=== PATIENT | female | born 2000 | race Caucasian/White ===

== ENCOUNTER 2024-04-02 15:49 | Emergency (ER) | payer OTHER, SELFPAY ==
[2024-04-02 15:55] VITALS: BP 112/71; PULSE 94; RESP 16; TEMP 36.6; O2SAT 97
--- NOTE | 2024-04-02 16:11 | ED.GENADULT ---
HPI - General Adult General Chief complaint: Urogenital-Female Stated complaint: Uti Symptoms Time Seen by Provider: 04/02/24 16:11 Source: patient, RN notes reviewed and old records reviewed Mode of arrival: ambulatory Limitations: no limitations History of Present Illness HPI narrative: 24-year-old female to Express Care for complaint of vaginal irritation itching discharge for 3 days. Patient describes discharge as white and creamy to chunky consistency. Patient endorses sexual intercourse with new partner 3 days ago. Patient states that she used protection. Patient denies abdominal pain, back pain, urinary frequency, urinary urgency, dysuria, hematuria, nausea, vomiting, fever. Patient endorses history of BV. Patient in no acute distress. Related Data Allergies Allergy/AdvReac Type Severity Reaction Status Date / Time No Known Allergies Allergy Unknown Unverified 03/13/24 10:12 Review of Systems Review of Systems: All systems reviewed & are unremarkable except as noted in HPI and below Constitutional: Constitutional: Reports no additional constitutional complaints Eyes: Eyes: Reports no additional eye complaints ENT: Reports system reviewed and no additional complaints, except as documented Cardiovascular: Cardiovascular: Reports no additional cardiovascular complaints, Denies chest pain and Denies dyspnea Respiratory: Respiratory: Reports no additional respiratory complaints, Denies cough and Denies dyspnea Musculoskeletal: Musculoskeletal: Reports no additional musculoskeletal complaints Neurologic: Reports system reviewed and no additional complaints, except as documented Psychiatric: Psychiatric: Reports no additional psychiatric complaints PMFSH Past Medical History Medical History Depression Lower extremity surgery planned Surveillance for Depo-Provera contraception Family History Family History Other Breast cancer Depression Diabetes mellitus Social History Social History (Updated 03/13/24 @ 10:16 by Reena Cantu MA) Smoking status: Never smoker Alcohol intake: never Substance use: never Substance use type: does not use Do You Feel Safe in your Home?: Yes Lack of Transportation: No Current Housing: I Do Not Have Housing Concerned About Future Housing: No Difficulty Paying Gas/Electric Bills: No Difficulty Paying for Meds: No Currently Unemployed: No Education: Bachelor's Degree Difficulty w/ Childcare or Family Care: No Living arrangements: with family Occupation/Education: occupation 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 There is no relevant family history pertinent to the patient complaint. Exam Const: General: cooperative, healthy appearing, comfortable, no acute distress, alert and well nourished Nutritional Appearance: well nourished Orientation/consciousness: patient oriented x3 Limitations: no limitations HENMT: Head: normal to inspection Ears: external ears normal Face/Nose/Sinus: Normal external nose present, Normal nares present, normal facial exam, No erythema and No edema Face and sinus: normal facial exam, no erythema and no edema Mouth: Yes Normal oral and palatal mucosa present Eyes: General: appearance normal, both eyes and all related structures Neck: Neck: normal visual inspection, full ROM and no meningeal signs Lymphatic: no lymphadenopathy noted and no lymphedema noted Chest: Chest palpation & inspection: normal inspection of the chest Resp: Effort & Inspection: normal respiratory effort and able to speak in complete sentences Cardio: Jugular tri
[2024-04-02 22:25] LABS: Trichomonas Vag PCR NOT DETECTED (NOT DETECTE)
[2024-04-02 22:47] LABS: Chlamydia trachomatis NOT DETECTED (NOT DETECTE); Neisseria gonorrhoeae PCR NOT DETECTED (NOT DETECTE)
[2024-04-03 17:23] LABS: Bacterial Vaginosis POSITIVE (NEGATIVE)
== END 2024-04-02 16:46 | disposition home or self-care (01) ==
PROVIDERS: Emergency Provider Nurse Practitioner Family; PCP Nurse Practitioner Family
DX: N76.0 Acute vaginitis (principal)
CPT/HCPCS: 81513; 87491; 87591; 87661; 99214; G0463

== ENCOUNTER 2024-08-12 10:24 | Emergency (ER) | payer OTHER, SELFPAY ==
--- NOTE | ~2024-08-12 | XR_ITS ---
XR chest 2V Ordering provider: Brigette Ashton APRN History: 24 years Female with . short of breath. Pain across chest since Bhanu . Comparison: None. FINDINGS: MEDIASTINUM: The cardiac silhouette is not enlarged. LUNGS: No infiltrates, effusions or pneumothorax. OTHER: No free air under the diaphragm. Mild levoscoliosis. IMPRESSION: No acute cardiopulmonary pathology. Reviewed, dictated and finalized at location [facility]. [facility]
[2024-08-12 10:38] VITALS: BP 125/72; PULSE 78; RESP 18; TEMP 36.4; O2SAT 100
--- NOTE | 2024-08-12 10:38 | ED_ITS ---
HPI - Chest Pain General Chief Complaint: Chest Pain Stated Complaint: tightness in chest / diarrhea Time Seen by Provider: 08/12/24 10:39 Source: patient, RN notes reviewed and old records reviewed Mode of arrival: ambulatory Limitations: no limitations History of Present Illness HPI narrative: Patient with history of IBS presents with complaints diarrhea which is at baseline, nausea which is unusual for her, no vomiting. She is also complaining of epigastric pain and difficulty taking a deep breath. She denies any fever, chills, sweats. She denies any cough. Discomfort is reproducible on palpation, is not reproducible with deep breath or movement. She has not been taking anything for her symptoms. She is in no distress, including respiratory distress right now Related Data Allergies Allergy/AdvReac Type Severity Reaction Status Date / Time No Known Allergies Allergy Unknown Verified 08/12/24 10:27 Review of Systems Review of Systems: All systems reviewed & are unremarkable except as noted in HPI and below Constitutional: Constitutional: Reports as per HPI and Reports no additional constitutional complaints ENT: Reports system reviewed and no additional complaints, except as documented and Reports as per HPI Cardiovascular: Cardiovascular: Reports as per HPI and Reports no additional cardiovascular complaints Respiratory: Respiratory: Reports as per HPI, Reports no additional respiratory complaints and Reports dyspnea Gastrointestinal: Gastrointestinal: Reports as per HPI, Reports no additional gastrointestinal complaints, Reports dyspepsia, Reports diarrhea, Reports loose stools, Reports nausea and Denies vomiting PMFSH Past Medical History Medical History Depression Lower extremity surgery planned Surveillance for Depo-Provera contraception Family History Family History Other Breast cancer Depression Diabetes mellitus Social History Social History Smoking status: Never smoker Alcohol intake: never Substance use: never Substance use type: does not use Do You Feel Safe in your Home?: Yes Lack of Transportation: No Current Housing: I Do Not Have Housing Concerned About Future Housing: No Difficulty Paying Gas/Electric Bills: No Difficulty Paying for Meds: No Currently Unemployed: No Education: Bachelor's Degree Difficulty w/ Childcare or Family Care: No Living arrangements: with family Occupation/Education: occupation 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 There is no relevant family history pertinent to the patient complaint. Exam Const: General: cooperative, no acute distress, alert and awake Orientation/consciousness: oriented to person, oriented to place and oriented to time HENMT: Head: normal to inspection Mouth: Yes moist mucous membranes Chest: Chest palpation & inspection: normal inspection of the chest Resp: Effort & Inspection: normal respiratory effort and able to speak in complete sentences Auscultation: clear to auscultation bilaterally, no crack les, no rales, no rhonchi and no wheezes Cardio: Palpation: normal PMI Rate: regular rate Rhythm: regular rhythm Heart sounds: S1 normal heart sound present and S2 normal heart sound present GI: GI Palp: Yes abdominal tenderness (epigastric) Auscultation: normal bowel sounds Neuro: General: oriented to person, oriented to place and oriented to time Cranial nerves: Yes CN's II-XII intact bilaterally Psych: Appearance: grossly normal Thought process: Normal thought process present Insight: Good insight present (Psych) Judgement: Good judgement present (Psych) Course Course Level of Care: Express Care Visit Vital Signs Vital signs: Reviewed MDM - Chest Pain MDM Narrative Medical decision making narrative: 24-year-old in no distress, longstanding history of IBS. Having some GI symptoms including tenderness on palpation of epigastric area. She reports that this is making it feel as though she is having difficulty taking a deep breath. EKG shows normal sinus rhythm with incomplete right bundle-branch block. Normal chest x-ray. Symptoms could well be due to GI. 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 Emergency department for new or worse symptoms. Discharge instructions reviewed with patient, as well as provided in writing per nursing staff. The instructions also include specific and strict return/GO TO THE ER as well as f/u information. All questions have been answered, and the patient deny any further questions with discharge and discharge plan. Some parts of this dictation were generated by voice recognition software and may contain typographical and/or grammatical inaccuracies. Differential Diagnosis Differential diagnosis: Likely other (Bundle-branch block, dyspepsia, nausea) Medical Records Data Attestation: I reviewed the patient's medical records. Imaging Data My impression: no acute process noted Radiologist's impression: Ordering Physician: Brigette Ashton FNP Date of Service: 08/12/24 Procedure(s): CA 12 lead EKG Accession Number(s): [id number] cc: ~ Test Date: 2024-08-12 10:46:54 Measurements Intervals [place] Rate: 71 P: 44 TX: 120 QRS: 62 QRSD: 101 T: 38 QT: 388 QTc: 422 Interpretive Statements SINUS RHYTHM INCOMPLETE RIGHT BUNDLE BRANCH BLOCK BORDERLINE ECG No previous ECG available for comparison Electronically Signed On 08-12-2024 10:59:01 CARDIOLOGY PHYSICIAN by Jamie Mendez D.O. Dictated By: Jamie Mendez DO 08/12/24 1046 Signed By: <Electronically signed by Jamie Mendez DO in OV> 08/12/24 1059 ECG Data EKG #1: ECG completion date: 08/12/24 ECG completion time: 10:46 Prior ECG tracings: not available for review Interpretation: sinus rhythm with a ventricular rate of [address] elevation, incomplete right bundle branch block. No prior EKG available for comparison Discharge Plan Discharge Clinical Impression: Atypical chest pain Patient Disposition: Home, Self-Care Condition: Stable Instructions: Epigastric Pain (ED) Additional Instructions: take medications as prescribed. Follow-up primary care provider. Emergency department for new or worse symptoms Patient Language: [place] Prescriptions: New omeprazole 40 mg capsule,delayed release(DR/EC) 40 mg PO DAILY Qty: 30 0RF ondansetron 4 mg tablet,disintegrating 4 mg PO Q8H PRN (Reason: nausea and vomiting) Qty: 10 0RF Follow-up/Referrals: Chad,Magalis Sky APRN [Primary Care Provider] - 3 Days Stand Alone Forms: Work/School Release IP Time of Disposition: 11:28
--- NOTE | 2024-08-12 10:40 | ECG_ITS ---
Test Date: 2024-08-12 10:46:54 Measurements Intervals [place] Rate: 71 P: 44 OR: 120 QRS: 62 QRSD: 101 T: 38 QT: 388 QTc: 422 Interpretive Statements SINUS RHYTHM INCOMPLETE RIGHT BUNDLE BRANCH BLOCK BORDERLINE ECG No previous ECG available for comparison Electronically Signed On 08-12-2024 10:59:01 CLINICAL REVIEWER by Jamie Mendez D.O.
== END 2024-08-12 11:29 | disposition home or self-care (01) ==
PROVIDERS: Emergency Provider Nurse Practitioner Family; PCP Nurse Practitioner Family
DX: R07.89 Other chest pain (principal)
CPT/HCPCS: 71046; 93005; 99213; G0463

== ENCOUNTER 2024-08-12 17:43 | Emergency (ER) | payer OTHER, SELFPAY ==
--- NOTE | ~2024-08-12 | XR_ITS ---
CHEST RADIOGRAPH, PA AND LATERAL CLINICAL HISTORY: epigastric/ inferior chest pain . COMPARISON: Examination is compared with the previous study performed on the same day at 11:00 AM. TECHNIQUE: PA and lateral views of the chest. FINDINGS The cardiomediastinal silhouette remains unremarkable. The lungs remain clear. Visualized osseous structures and soft tissues remain unremarkable. IMPRESSION: No focal infiltrate or effusion. Reviewed, dictated and finalized at location [facility]
[2024-08-12 17:47] VITALS: BP 124/72; PULSE 74; RESP 18; TEMP 36.6; O2SAT 100
[2024-08-12 17:51] VITALS: O2SAT 100
[2024-08-12 17:53] VITALS: PULSE 75
[2024-08-12 18:16] VITALS: BP 110/63; PULSE 65; RESP 16; O2SAT 100
[2024-08-12 19:01] LABS: BEDSIDEPREGUCG Negative (Negative)
[2024-08-12] MEDS: BELLADONNA ALK/PHENOB ELIX 10 ML, MAG HYDROX/ALUMINUM HYD/SIMETH 30 ML, LIDOCAINE HCL 2... PO (19:06)
[2024-08-12] MEDS: FAMOTIDINE 20 MG TABLET PO (19:09)
[2024-08-12 19:12] LABS: Add Urine Microscopic? YES; Appearance Urine Cloudy (Clear); Bacteria Urine None Seen /hpf; Bilirubin Urine Negative (Negative); Blood Urine 2+ (Negative); Color Urine Yellow (Yellow); Glucose Urine UA Negative (Negative); Ketones Urine Negative (Negative); Leukocyte Esterase Ur Negative LEU/UL (Negative); Nitrate Urine Negative (Negative); Non Pathogenic Casts 0-2; Protein Urine Trace mg/dL (Negative); Specific Grav Ur 1.023 (1.001-1.035); Squamous Epithelial Cell Urine Occasional /hpf (Few); WBC Urine 0-5 /hpf (0-3); pH Urine 7.5 (5.0-9.0)
[2024-08-12 19:39] VITALS: BP 116/79; PULSE 70; RESP 19; O2SAT 100
[2024-08-12 19:45] LABS: Basophils Percent Auto 0.4 % (0.2-1.2); Eosinophils Absolute Auto 0.3 K/mm3 (0-0.3); Eosinophils Percent Auto 3.2 % (0-4.4); Hematocrit 38.3 % (37.0-47.0); Immature Granulocyte Absolute 0.02 K/mm3 (0.00-0.031); Immature Granulocyte Percent A 0.2 % (0-0.5); Lymphocytes Absolute Auto 3.07 K/mm3 (0.9-3.2); Lymphocytes Percent Auto 37.5 % (18.3-44.2); Mean Corpuscular HGB Conc 33.9 g/dl (32-36); Mean Corpuscular Hemoglobin 28.8 pg (26-34); Mean Corpuscular Volume 84.7 fl (80-100); Mean Platelet Volume 9.9 fl (7.4-10.4); Monocytes Absolute Auto 0.5 K/mm3 (0.1-0.6); Monocytes Percent Auto 5.7 % (2.6-8.5); Neutrophils Absolute Auto 4.3 K/mm3 (1.3-6.7); Platelet Count Result 247 k/mm3 (150-375); Red Blood Count 4.52 M/mm3 (4.2-5.4); Red Cell Distribution Width 12.1 % (11.5-14.5); White Blood Count 8.2 K/mm3 (4.5-10.0)
[2024-08-12 19:55] LABS: Alanine Aminotransferase 11 U/L (6-35); Albumin Level 4.1 g/dL (3.5-5.1); Alkaline Phosphatase 77 U/L (38-126); Anion Gap 5 mmol/L (4-12); Aspartate Amino Transferase 22 U/L (14-36); Bilirubin,Total 0.6 mg/dL (0.2-1.3); Blood Urea Nitrogen 12 mg/dL (7-17); Carbon Dioxide 28 mmol/L (22-30); Chloride 106 mmol/L (98-107); Estimated CRCL calculation 77 ml/min; Estimated Glomerular Filt Rate > 60; Glucose 98 mg/dL (65-110); Lipase 75 U/L (23-300); Potassium 3.6 mmol/L (3.4-5.0); Sodium 139 mmol/L (137-145)
[2024-08-12 20:05] LABS: Troponin I < 0.012 ng/mL (0.000-0.034)
--- NOTE | 2024-08-12 20:13 | ED_ITS ---
HPI - Chest Pain General Chief Complaint: Chest Pain Stated Complaint: chest pains Time Seen by Provider: 08/12/24 18:12 History of Present Illness HPI narrative: 24-year-old female presents emergency department for chest pain. Patient states she has been having pain where her sternum and stomach meet. States there is a constant pressure about every 5-10 minute she has a sharp pinpoint pain in her epigastrium. She reports associated shortness of breath but cannot identify any aggravating or alleviating factors. She reports associated nausea but no vomiting. Denies cough, congestion, lower extremity edema, recent surgeries or hospitalizations, history of VTE, fever. Denies melena or hematochezia, hemoptysis. Related Data Allergies Allergy/AdvReac Type Severity Reaction Status Date / Time No Known Allergies Allergy Unknown Verified 08/12/24 10:27 Review of Systems Review of Systems: All systems reviewed & are unremarkable except as noted in HPI and below PMFSH Past Medical History Medical History Depression Lower extremity surgery planned Surveillance for Depo-Provera contraception Family History Family History Other Breast cancer Depression Diabetes mellitus Social History Social History Smoking status: Never smoker Alcohol intake: never Substance use: never Substance use type: does not use Do You Feel Safe in your Home?: Yes Lack of Transportation: No Current Housing: I Do Not Have Housing Concerned About Future Housing: No Difficulty Paying Gas/Electric Bills: No Difficulty Paying for Meds: No Currently Unemployed: No Education: Bachelor's Degree Difficulty w/ Childcare or Family Care: No Living arrangements: with family Occupation/Education: occupation 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 HEAD: Normocephalic, atraumatic. EYES: EOMI. ENT: Nares clear, no rhinorrhea or epistaxis. Mucous membranes moist. NECK: Supple. CHEST: Clear to auscultation. No respiratory distress. HEART: Regular rate and rhythm. No murmur heard. Normal peripheral pulses. ABDOMEN: Soft, nontender, nondistended, normal active bowel sounds. No rebound, guarding or rigidity. No CVA tenderness. EXTREMITIES: Normal range of motion. No edema. Negative Homans bilaterally SKIN: Warm, dry, no rash. NEURO: No focal deficits. Alert and oriented x3 Course Vital Signs Vital signs: Vital Signs Temperature 97.8 F 08/12/24 17:47 Pulse Rate 74 08/12/24 17:47 Respiratory Rate 18 08/12/24 17:47 Blood Pressure 124/72 08/12/24 17:47 Pulse Oximetry 100 08/12/24 17:47 Oxygen Delivery Room Air 08/12/24 17:47 Temperature 97.8 F 08/12/24 17:47 Pulse Rate 70 08/12/24 19:39 Respiratory Rate 19 08/12/24 19:39 Blood Pressure 116/79 08/12/24 19:39 Pulse Oximetry 100 08/12/24 19:39 Oxygen Delivery Room Air 08/12/24 17:51 MDM - Chest Pain MDM Narrative Medical decision making narrative: 24-year-old female presents emergency department for epigastric abdominal pain intermittently for the past 3 days. Triage vitals are stable. Patient is afebrile nontoxic appearing. Exam is significant for the above. CBC obtained which shows no leukocytosis or anemia, chemistries are unremarkable. LFTs are unremarkable. UA with 3-5 rbc's, no wbc's, no nitrites. is negative. Lipase is normal. His x-ray shows no acute findings. EKG shows sinus rhythm with sinus arrhythmia, normal WI interval, normal QRS duration, normal QTC, no ischemic changes. Troponin is undetectable. Perc is negative. Patient and mother at bedside are updated workup. She is given Pepcid and GI cocktail for suspected gastritis without significant improvement. I discussed diet changes and close follow-up with PCP. Pepcid sent to pharmacy. Strict ED return precautions discussed. She is agreeable to plan verbalized understanding. Discharged in stable condition. Lab Data 08/12/24 19:37 08/12/24 19:37 Labs: Lab Results 08/12/24 08/12/24 08/12/24 Range/Units 18:59 19:04 19:37 WBC 8.2 (4.5-10.0) K/mm3 RBC 4.52 (4.2-5.4) M/mm3 Hgb 13.0 (12.0-15.0) g/dL Hct 38.3 (37.0-47.0) % MCV 84.7 (80-100) fl MCH 28.8 (26-34) pg MCHC 33.9 (32-36) g/dl RDW 12.1 (11.5-14.5) % Plt Count 247 (150-375) k/mm3 MPV 9.9 (7.4-10.4) fl Immature Gran % (Auto) 0.2 (0-0.5) % Neut % (Auto) 53.0 (45.5-73.1) % Lymph % (Auto) 37.5 (18.3-44.2) % [place] % (Auto) 5.7 (2.6-8.5) % Eos % (Auto) 3.2 (0-4.4) % Baso % (Auto) 0.4 (0.2-1.2) % Lymph # (Auto) 3.07 (0.9-3.2) K/mm3 [place] # (Auto) 0.5 (0.1-0.6) K/mm3 Eos # (Auto) 0.3 (0-0.3) K/mm3 Baso # (Auto) 0.0 (0.0-0.1) K/mm3 Abs Immat Gran (auto) 0.02 (0.00-0.031) K/mm3 Absolute Neuts (auto) 4.3 (1.3-6.7) K/mm3 Absolute Nucleated RBC 0.000 (0.0-0.012) K/mm3 Nucleated RBC % 0.0 (0.0-0.2) % Sodium 139 (137-145) mmol/L Potassium 3.6 (3.4-5.0) mmol/L Chloride 106 (98-107) mmol/L Carbon Dioxide 28 (22-30) mmol/L Anion Gap 5 (4-12) mmol/L BUN 12 (7-17) mg/dL Creatinine 0.90 (0.7-1.0) mg/dL Estim Creat Clear Calc 77 ml/min Estimated GFR > 60 (59 - ) Glucose 98 (65-110) mg/dL Calcium 9.0 (8.4-10.2) mg/dL Total Bilirubin 0.6 (0.2-1.3) mg/dL AST 22 (14-36) U/L ALT 11 (6-35) U/L Alkaline Phosphatase 77 (38-126) U/L Troponin I < 0.012 (0.000-0.034) ng/mL Total Protein 7.0 (6.3-8.2) g/dL Albumin 4.1 (3.5-5.1) g/dL Lipase 75 (23-300) U/L Urine Color Yellow (Yellow) Urine Appearance Cloudy H (Clear) Urine pH 7.5 (5.0-9.0) Ur Specific [place] 1.023 (1.001-1.035) Urine Protein Trace (Negative) mg/dL Urine Glucose (UA) Negative (Negative) mg/dL Urine Ketones Negative (Negative) mg/dL Ur Blood (Man) 2+ H (Negative) Urine Nitrate Negative (Negative) Urine Bilirubin Negative (Negative) Urine Urobilinogen 1.0 (<2.0) mg/dL Leukocyte Esterase Rfl Negative (Negative) TANNA/UL Urine RBC 3-5 H (0-2) /hpf Urine WBC 0-5 (0-3) /hpf Ur Squamous Epith Cells Occasional (Few) /hpf Urine Bacteria None seen /hpf Urine Casts 0-2 POC Urine HCG, Qual Negative (Negative) Discharge Plan Discharge Clinical Impression: Epigastric abdominal pain, Atypical chest pain Patient Disposition: Home, Self-Care Condition: Stable Instructions: Antibiotic Form, Chest Pain (ED), Epigastric Pain (ED) Additional Instructions: Please follow-up closely with her primary care provider. Return to the emergency department if he develops significantly worsening symptoms, shortness of breath, fever, you cough up blood, or other concerning symptoms. Prescriptions: New famotidine 20 mg tablet 20 mg PO DAILY Qty: 14 0RF Follow-up/Referrals: Chad,Magalis Sky APRN [Primary Care Provider] -
== END 2024-08-12 20:29 | disposition home or self-care (01) ==
PROVIDERS: Emergency Medicine; Emergency Provider Physician Assistant; PCP Nurse Practitioner Family
DX: R07.89 Other chest pain (principal); R10.13 Epigastric pain; I45.10 Unspecified right bundle-branch block
CPT/HCPCS: 36415; 71046; 80053; 81001; 81025; 83690; 84484; 85025; 93005; 99284; A9270

== ENCOUNTER 2025-01-02 17:13 | Emergency (ER) | payer OTHER, SELFPAY ==
--- OUTSIDE RECORDS SUMMARY | 2025-01-02 17:15 | XMS_ITS | Referral Summary ---
Author Organization [facility] Address [address] [place] [address] Care Team Providers Care Infusion Nurse Name Role Phone Magalis Bonilla NP Primary Care Provider Viv Concepcion MD Unavailable [phone] Allergies No known active allergies Medications metroNIDAZOLE (FLAGYL) 500 mg tablet Take 1 tablet (500 mg total) by mouth 2 (two) times a day 4 Active fluconazole (DIFLUCAN) 200 mg tablet 4 Active hydrocortisone (ANUSOL-HC) 2.5 % rectal creamIndications :External hemorrhoids without complication Insert into the rectum 4 (four) times a day as needed for hemorrhoids (rectal discomfort) Apply to affected areas 30 g 4 Active Active Problems Problem Noted Date Diagnosed Date Grade I hemorrhoids 04/09/2024 Assessment & Plan (04/09/2024 7:01 PM CDT): Anusol-hc x 2 weeks Discussed fiber Continue use of Tuck's pads as well (between applications of Anusol Sitz baths can be helpful as well Scoliosis 02/08/2024 Panic attacks 01/19/2023 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 Overall feels stable, no issues today. Mass of lower extremity 12/02/2016 Multiple fractures of pelvis 06/30/2015 Irritable bowel syndrome 06/24/2015 Assessment & Plan (02/08/2024 10:52 AM CDT): Stable overall. Has intermittent, random nausea episodes with no clear correlation. Trial daily Pepcid, if no improvement will need to re-evaluate. Resolved Problems Problem Noted Date Diagnosed Date Resolved Date Abdominal pain, lower 01/19/20212022 Overview (01/19/2021): Added automatically from request for surgery [id number] Diarrhea 01/19/2021 09/14/2023 Overview (01/19/2021): Added automatically from request for surgery [id number] Nausea 01/19/2021 09/14/2023 Overview (01/19/2021): Added automatically from request for surgery [id number] Immunizations Immunization Administration Dates Next Due DTaP, Unspecified 02/01/2006, 3,2002,06/14,2002 HPV, Quadrivalent 05/04/2017,07/28/2016,05/04/20 16 Hep A, Unspecified 02/19/2008,04/16/2007 Hep B / HiB 02/13/2003,2002,2002 Influenza, Quadrivalent, Spl it, Preservative Free, Intramuscular 08/12/2021,07/30/2020,11/21/2019,07/19 Influenza, Unspecified 10/02/2023,10/02/2022 MMR 02/01/2006,02/13/2003 Meningococcal B, unspecified 05/07/2018 Meningococcal Conjugate (Menveo) 10/24/2013 Pfizer SARS-CoV-2 Monovalent Vaccination (12+ Yrs) PURPLE 01/04/2021,12/13/2020 Pneumococcal Conjugate PCV 13 02/13/2003 ,2002,2002,04/09 Polio, Unspecified 02/01/2006, 2,2002,04/09 Tdap 05/07/2018,05/13/2013 Varicella 04/16/2007,07/17/2003 Social History Tobacco Use Types Packs/Day Years Used Date Smoking Tobacco: Never Smokeless Tobacco: Never Tobacco Cessation:Counseling Given: Not Answered Alcohol Use Standard Drinks/Week Comments Never 0 (1 standard drink = 0.6 oz pur e alcohol) Humiliation, Afraid, Rape, and Kick questionnair e Answer Date Recorded Fear of Current or Ex-Partner No Emotionally Abused No 06/05/2019 Physically Abused No 06/05/2019 Sexually Abused No 06/05/2019 Social Connection and Isolation Panel [NHANES] A nswer Date Recorded Frequency of Communication with Friends and Fami ly Not on file 06/05/2019 Frequency of Social Gatherings with Friends and Family Not on file 06/05/2019 Attends Quaker Services Not on file 06/05 Active Member of Clubs or Organizations Not on f ile 06/05/2019 Attends Club or Organization Meetings Not on sea e 06/05/2019 Marital Status Never 06/05/2019 AUDIT-C Answer Date Recorded Q1: How often do you have a drink containing alc ohol? Monthly or less 02/08/2024 Average Number of Drinks Not on file 024 Frequency of Binge Drinking Not on file 06/2024 PHQ-2 Answer Date Recorded PHQ-2 Total Score (If total score is 3 or more points, staff should administer the PHQ-9) 0 04/08/2024 Exercise Vital Sign Answer Date Recorde d Days of Exercise per Week 3 days 2018 Minutes of Exercise per Session 30 min 06/05/2019 Comments No Sex and Gender Information Value Date Recorded Sex Assigned at Not on file Legal Sex Female 4:29 AM EDGE BONDER Gender Identity Female 01/11/2021 8:24 AM CDT Sexual Orientation Straight 01/11/2021 8: 24 AM CDT Last Filed Vital Signs Vital Sign Reading Time Taken Comments Blood Pressure 108/68 04/08/2024 8:15 AM CDT Pulse 90 04/08/2024 8:15 AM CDT Temperature 36.7 C (98.1 F) 04/08/2024 8:15 AM CDT Respiratory Rate 18 04/08/2024 8:15 AM CDT Oxygen Saturation 98% 04/08/2024 8:15 AM CDT Inhaled Oxygen Concentration - - Weight 67.1 kg (148 lb) 04/08/2024 8:15 AM CDT Height 165.1 cm (5' 5 ) 04/08/2024 8:15 AM CDT Body Mass Index 24.63 04/08/2024 8:15 AM CDT Plan of Treatment Not on file Procedures Procedure Name Priority Date/Time Associated Diagnosis Comments N. GONORRHOEAE/C. TRACHOMATIS AMPLIFICATION Routine 08/12/2021 2:53 PM EDGE BONDER Routine screening for STI (sexually transmitted infection) from Last 3 Months or Most Recently Relevant to Health Maintenance Results * N. gonorrhoeae/C. trachomatis Amplification Urine (08/12/2021 2:53 PM EDGE BONDER) C. trachomatis Not Detected Not Detected [facility] Comment:Testing performed by : [facility], [address] [place] [address]., [id number] N. gonorrhoeae Not Detected Not Detected [facility] Comment: Interpretive Data Testing performed by the [facility] Laboratory. This assay detects Chlamydia trachomatis and Neisseria gonorrhoeae by nucleic acid amplification testing (NAAT). This test is approved by the [place] Food and Drug Administration and the performance characteristics have been verified by the laboratory. The performance characteristics of this test have not been evaluated in individuals less than 14 years of age. Current Interpretive Data was last revised on 2018. Testing performed by: [facility], [address] [place] [address]., [address] Urine (None) 08/12/2021 2:53 PM EDGE BONDER 08/12/2021 8:03 PM EDGE BONDER us Jan Arriaga NP LAB MICROBIOLOGY - GENERAL O RDERABLES Final Result [facility] Department [place] [address] from Last 3 Months or Most Recently Relevant to Health Maintenance Insurance [facility] OPEN ACCESS Advance Directives For more information, please contact: [phone] Documents on File Type Date Recorded Patient Rn Neurosurgical Expl anation ADVANCE DIRECTIVE 02/12/2021 9:46 AM ADV D IRECTIVE ADVANCE DIRECTIVE 01/25/2021 2:13 PM Care Teams Infusion Nurse Relationship Specialty Start Date End Date Magalis Bonilla NP [address] [place] [address] PCP - General Family Medicine 02/08/24 Viv Concepcion MD [address] [place] [address] Obstetrics and Gynecology 02/08/24
--- OUTSIDE RECORDS SUMMARY | 2025-01-02 17:15 | XMS_ITS | Clinical Summary ---
Author Organization [facility] Address [address] [place] [address] Care Team Providers Care Hyperbaric Technologist Name Role Phone Magalis Bonilla NP Primary Care Provider [phone] Viv Concepcion MD Unavailable [phone] Allergies No known active allergies Medications metroNIDAZOLE [...] Plan (02/08/2024 10:53 AM CDT): Was seeing [facility] Psychology, no longer seeing. Overall feels stable, [...] (01/19/2021): Added automatically from request for surgery [id number] Diarrhea 01/19/2021 09/14/2023 Overview (01/19/2021): Added automatically from request for surgery [id number] Nausea 01/19/2021 09/14/2023 Overview (01/19/2021): Added automatically from request for surgery [id number] Immunizations Immunization Administration Dates Next Due DTaP, [...] Unspecified 02/01/2006, 2,2002,04/09 Tdap 05/07/2018,05/13/2013 Varicella 04/16/2007,07/17/2003 Surgical History Surgery Date Site/Laterality Comments OTHER SURGICAL HISTORY 12/15/2016 fatty necrosis removal Medical History Medical History Date Comments Depression Anxiety Abdominal pain, lower 01/19/2021 Added auto matically from request for surgery [id number] Diarrhea 01/19/2021 Added automatica lly from request for surgery [id number] Nausea 01/19/2021 Added automatica lly from request for surgery [id number] Generalized anxiety disorder 05/25/2017 Mass of lower extremity 12/02/2016 Irritable bowel syndrome 06/24/2015 Family History Medical History Relation Name Comments No Known Problems Father Cancer Maternal Grandfather Raghav Pollard Breast cancer Maternal Grandmother Corrie Pollard Stroke Maternal Grandmother Corrie Pollard Anemia Mother Magaly Pollard Asthma Mother Magaly Pollard Breast cancer Mother Magaly Pollard Irritable bowel syndrome Mother Magaly Pollard Diabetes Paternal Grandfather Clint [place]f Heart attack Paternal Grandfather [place] Asthma Sister Relation Name Status Comments Father Alive Maternal Grandfather Raghav Pollard Maternal Grandmother Corrie Pollard Mother Magaly Pollard Alive Paternal Grandfather [place] Sister Social History Tobacco Use Types Packs/Day Years [...] and Family Not on file 06/05/2019 Attends Baptism Services Not on file 06/05 Active Member [...] on file Legal Sex Female 4:29 AM PHYSICAL THERAPIST TECHNICIAN Gender Identity Female 01/11/2021 8:24 AM CDT Sexual Orientation Straight 01/11/2021 8: 24 AM CDT Obstetrics History Para Term AB IAB SAB Ectopic Multiple Livin g Live Births 0 0 0 0 0 0 0 0 0 0 0 Last Filed Vital Signs Vital Sign Reading [...] 04/08/2024 8:15 AM CDT Plan of Treatment Health Maintenance Due Date Last Done Comments Hepatitis C Screening 2002 Meningococcal B Vaccine (1 o f 2 - Standard) 06/04/2018 05/07/2018 Chlamydia and Gonorrhea (GC/ CT) Screening 08/12/2022 08/12/2021, 05/07/2020, 04/24/2018 Cervical Cancer Screening 03/31/2024 03/31/2023 Covid-19 Vaccine (3 - 2023-2 5 season) 2024 01/04/2021, 12/13/2020 Regular Well Visit/Exam 18-64 02/07/2025 02/08/2024 Depression Screening 04/08/2025 04/08/2024, 02/08/2024, 12/14/2023, Additional history exists Influenza Vaccine (Season Ended) 2025 10/02/2023, 10/02/2022, 08/12/2021, Additional history exists DTaP/Tdap/Td Vaccine (8 - Td or Tdap) 05/07/2028 05/07/2018, 05/13/2013, 02/01/2006, Additional history exists Hepatitis B Screening Completed 02/13/2003 , 2002, 2002 Pneumococcal vaccine <65 Completed 003, 2002, 2002, Additional history exists Varicella Vaccines Completed 04/16/2007, 07/17/2003 HPV Vaccines Completed 05/04/2017, 07/03, 05/04/2016 Procedures Procedure Name Priority Date/Time Associated Diagnosis Comments N. GONORRHOEAE/C. TRACHOMATIS AMPLIFICATION Routine 08/12/2021 2:53 PM PHYSICAL THERAPIST TECHNICIAN Routine screening for STI (sexually transmitted infection) from Last 3 Months or Most Recently Relevant to Health Maintenance Results * N. gonorrhoeae/C. trachomatis Amplification Urine (08/12/2021 2:53 PM PHYSICAL THERAPIST TECHNICIAN) C. trachomatis Not Detected Not Detected [facility] Comment:Testing performed by : [facility], [address] [place] [address] N. gonorrhoeae Not Detected Not Detected [facility] Comment: Interpretive Data Testing performed by the [facility] Laboratory. This assay detects Chlamydia trachomatis [...] last revised on 2018. Testing performed by: [facility], [address] [place] [address] Urine (None) 08/12/2021 2:53 PM PHYSICAL THERAPIST TECHNICIAN 08/12/2021 8:03 PM PHYSICAL THERAPIST TECHNICIAN Jan Arriaga NP LAB MICROBIOLOGY - GENERAL O RDERABLES Final Result [facility] [place] [address] from Last 3 Months or Most Recently Relevant to Health Maintenance Insurance [facility] HMO [employer] [facility] Advance Directives For more information, please contact: [phone] Documents on File Type Date Recorded Patient Engineering Lecturer Expl anation ADVANCE DIRECTIVE 02/12/2021 9:46 AM ADV D IRECTIVE ADVANCE DIRECTIVE 01/25/2021 2:13 PM Care Teams Hyperbaric Technologist Relationship Specialty Start Date End Date Magalis Bonilla NP [address] [place] [address] PCP - General Family Medicine 02/08/24 Viv Concepcion MD [address] [place] [address] Obstetrics and Gynecology 02/08/24
--- OUTSIDE RECORDS SUMMARY | 2025-01-02 17:15 | XMS_ITS | Encounter Summary ---
Author Organization [facility] Address [address] [place] [address] Care Team Providers Care Costume Shop Manager Name Role Phone Jo Ann Deluna MD Primary Care Provider [phone] Referral, Self Primary Care Provider Unavailabl e Unknown, Notinfile Primary Care Provider Unavail able Magalis Bonilla NP Primary Care Provider [phone] Viv Concepcion MD Unavailable [phone] Encounter Details Date Type Department Care Team (Late st Contact Info) Description 02/09/2021 Telephone [facility] MRI Department [address] [place] [address] Annetta Ramos, RT Social History Tobacco Use Types Packs/Day Years Used Date Smoking Tobacco: Never Smokeless Tobacco: Never Alcohol Use Standard Drinks/Week Comments Never 0 [...] and Family Not on file 06/05/2019 Attends Islam Services Not on file 06/05 Active Member of Clubs or Organizations Not on f ile 06/05/2019 Attends Club or Organization Meetings Not on sea e 06/05/2019 Marital Status Never 06/05/2019 AUDIT-C Answer Date Recorded Frequency of Alcohol Consumption Never 06/05/2019 Average Number of Drinks Not on file 019 Frequency of Binge Drinking Not on file 12/2018 PHQ-2 Answer Date Recorded PHQ-2 TOTAL SCORE 0 01/14/2021 Exercise Vital Sign Answer Date Recorde d Days of Exercise per Week 3 days 2018 Minutes of Exercise per Session 30 min 06/05/2019 Comments No Sex and Gender Information Value Date Recorded Sex Assigned at Not on file Legal Sex Female 4:29 AM NURSING HOME ADMISSIONS DIRECTOR Gender Identity Female 01/11/2021 8:24 AM CDT Sexual Orientation Straight 01/11/2021 8: 24 AM CDT documented as of this encounter Plan of Treatment Not on file documented as of this encounter Visit Diagnoses Not on filedocumented in this encounter Care Teams Costume Shop Manager Relationship Specialty Start Date End Date Jo Ann Deluna MD [address] [place] [address] PCP - General 12/15/16 09/13/23 Referral, Self PCP - General 11/30/23 12/10/23 Unknown, Notinfile PCP - General 12/11/23 02/07/24 Magalis Bonilla NP [address] [place] [address] PCP - General Family Medicine 02/08/24 Viv Concepcion MD [address] [place] [address] Obstetrics and Gynecology 02/08/24 documented as of this encounter
--- NOTE | 2025-01-02 17:17 | ED_ITS ---
HPI - URI/Sore Throat General Chief Complaint: Upper Respiratory Infection Stated Complaint: congestion/cough Time Seen by Provider: 01/02/25 17:23 Source: patient Mode of arrival: ambulatory Limitations: no limitations History of Present Illness HPI Narrative: Jade is a 24-year-old female patient presenting to the clinic today with complaints of cough and nasal congestion times 8 days. She reports cough is no nproductive in she is blowing out clear nasal drainage. States she had a fever at the initial part of her illness however the fever has resolved and sore throat has resolved. MD elicited complaint: sore throat and nasal congestion Related Data Allergies Allergy/AdvReac Type Severity Reaction Status Date / Time No Known Allergies Allergy Unknown Verified 01/02/25 17:25 Review of Systems Review of Systems: Pertinent positives per HPI. Patient denies any fever, chills, rash, headache, visual changes, dizziness, shortness of breath, chest pain, palpitations, nausea, vomiting, diarrhea, constipation, abdominal pain, or any urinary issues. PMFSH Past Medical History Medical History Depression Surveillance for Depo-Provera contraception Lower extremity surgery planned Family History Family History Other Breast cancer Depression Diabetes mellitus Social History Social History Smoking status: Never smoker Alcohol intake: never Substance use: never Substance use type: does not use Do You Feel Safe in your Home?: Yes Lack of Transportation: No Current Housing: I Do Not Have Housing Concerned About Future Housing: No Difficulty Paying Gas/Electric Bills: No Difficulty Paying for Meds: No Currently Unemployed: No Education: Bachelor's Degree Difficulty w/ Childcare or Family Care: No Living arrangements: with family Occupation/Education: occupation 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 There is no relevant family history pe rtinent to the patient complaint. Exam Narrative: General: Well-developed, well nourished, in no apparent distress Head: Normocephalic, atraumatic Eyes: Pupils equally round and reactive to light bilaterally, EOM intact, sclera and conjunctive clear, no discharge, lids normal Ears: TMs intact and clear, ear canals clear, no drainage, grossly hearing normal. Nose: Nares patent, clear nasal discharge, mild inflammation, no sinus tenderness. Mouth: Oral pharynx without lesions or masses, good dentition, MMM. Postnasal drip Neck: Supple, trachea midline, no enlargement of anterior or posterior cervical nodes, no thyroid masses or goiter palpable. Cardio: Regular rate and rhythm, s1 and s2 normal, no murmur appreciated. Resp: Clear to auscultation bilaterally, no rhonchi, rales, wheezing or rubs Course Course Emergency Course: Portions of this record may have been created with voice recognition software. Level of Care: Express Care Visit Vital Signs Vital signs: Vital Signs Temperature 36.3 C L 01/02/25 17:24 Pulse Rate 73 01/02/25 17:24 Respiratory Rate 18 01/02/25 17:24 Blood Pressure 133/68 01/02/25 17:24 Pulse Oximetry 100 01/02/25 17:24 Oxygen Delivery Room Air 01/02/25 17:24 Temperature 36.3 C L 01/02/25 17:24 Pulse Rate 73 01/02/25 17:24 Respiratory Rate 18 01/02/25 17:24 Blood Pressure 133/68 01/02/25 17:24 Pulse Oximetry 100 01/02/25 17:24 Oxygen Delivery Room Air 01/02/25 17:24 Vital signs reviewed MDM - URI/Sore Throat MDM Narrative Medical decision making narrative: At the time of visit patient is resting comfortably on the exam table. Patient appears to be nontoxic. Plan: I suspect patient has URI. Prescription for prednisone and Tessalon Perles was sent to the pharmacy. Supportive measures were discussed with the patient and they voiced understanding discharge instructions and agrees to treatment plan. Return precautions reviewed Differential Diagnosis Differential diagnosis: Likely upper respiratory infection, otitis media, sinusitis, viral infection, bronchitis, influenza, pharyngitis and other (COVID) Discharge Plan Discharge Clinical Impression: Upper respiratory infection Qualifiers: URI type: unspecified URI Qualified Code(s): J06.9 - Acute upper respiratory infection, unspecified Patient Disposition: Home, Self-Care Condition: Stable Instructions: Antibiotic Form, Cold Symptoms (ED) Additional Instructions: Take prescription medications only as prescribed-prednisone and Tessalon Perles Increase fluids and stay well hydrated Tylenol/motrin for pain/fever Flonase and OTC antihistamines as directed Vicks vapor rub to open sinuses Sinus rinses for congestion Cepacol spray, cough drops, throat lozenges, warm tea with honey/lemon, gargle salt water to soothe throat BRAT diet for diarrhea Clear liquids x 24 hours then advance as tolerated for nausea/vomiting Go to the ED if you develop a worsening in your condition- high fever not controlled by Tylenol or Motrin, dehydration, weakness, lethargy, shortness of breath, or chest pain. Follow up with your PCP in 3-5 days if symptoms persist. Patient Language: Mongolian Prescriptions: New benzonatate 200 mg capsule 200 mg PO TID 7 Days Qty: 21 0RF prednisone 20 mg tablet 40 mg PO DAILY 5 Days Qty: 10 0RF Follow-up/Referrals: Chad,Magalis Sky, EMPLOYMENT LAW SPECIALIST [Primary Care Provider] - Time of Disposition: 17:30 Quality NIHSS Nursing Documentation ED NIHSS nursing documentation: reviewed/agree
[2025-01-02 17:24] VITALS: BP 133/68; PULSE 73; RESP 18; TEMP 36.3; O2SAT 100
== END 2025-01-02 17:35 | disposition home or self-care (01) ==
PROVIDERS: Emergency Provider Nurse Practitioner Family; PCP Nurse Practitioner Family
DX: J06.9 Acute upper respiratory infection, unspecified (principal)
CPT/HCPCS: 99213; G0463